=== PATIENT | male | born 1995 | race Caucasian/White ===

== ENCOUNTER 2023-11-27 08:50 | Emergency (ER) | payer OTHER ==
--- NOTE | 2023-11-27 09:17 | ED Physician Documentation ---
History of Present Illness - Stated complaint Stated Complaint: NECK/FACE SWOLLEN/DENTAL INFECTION - Chief complaint Chief Complaint: Heent - History obtained from History obtained from: Patient, Police - History of Present Illness Timing: How many weeks ago (1) Pain level max: 6 Pain level now: 6 - Additonal information Additional information: 28-year-old male presents to the emergency department with right lower jaw pain. He states that this started about a week ago. He is currently incarcerated and is here with police. Patient states that he was started on amoxicillin and Flagyl about 4 days ago. Feels like the swelling has continued to increase and felt like he had difficulty speaking last night and this morning. Feels like it is becoming more difficult to fully open his jaw. No fevers. No chills. Worse with movement, better with rest. Review of Systems Constitutional: denies: Fever, Chills Throat: reports: Sore throat Cardiac: denies: Palpitations Respiratory: denies: Dyspnea, Cough, Wheezing GI: denies: Nausea, Vomiting, Diarrhea Skin: denies: Rash Musculoskeletal: denies: Neck pain, Back pain Neurologic: denies: Headache PD PAST MEDICAL HISTORY - Past Medical History Past Medical History: No - Past Surgical History Past Surgical History: No - Present Medications Home Medications: Ambulatory Orders Medication Instructions Recorded Confirmed clindamycin HCL [Cleocin HCl] 300 mg PO Q6H #40 cap 11/27/23 - Allergies Allergies/Adverse Reactions: Allergies Allergy/AdvReac Type Severity Reaction Status Date / Time No Known Drug Allergies Allergy Verified 11/27/23 09:00 - Social History Does the pt smoke?: No Smoking Status: Never smoker Does the pt drink ETOH?: No PD ED PE NORMAL - Vitals Vital signs reviewed: Yes - General General: Alert and oriented X 3, No acute distress - HEENT HEENT: Other (Unable to fully visualize the posterior oropharynx, appears that there could be some mild asymmetric right-sided peritonsillar swelling. Patient has moderate trismus. There is swelling to the right inferior angle of the mandible. There is no swelling under the tongue. Normal phonation.) - Neck Neck: Supple, no meningeal sign - Cardiac Cardiac: RRR, Strong equal pulses - Respiratory Respiratory: No respiratory distress, Clear bilaterally - Abdomen Abdomen: Soft, Non tender, Non distended - Derm Derm: Warm and dry - Neuro Neuro: Alert and oriented X 3 Results - Vitals Vitals: Vital Signs - 24 hr 11/27/23 11/27/23 08:57 11:06 Temperature 36.6 C Heart Rate 91 81 Respiratory 16 16 Rate Blood Pressure 124/76 113/76 O2 Saturation 98 96 Oxygen O2 Source Room air - Labs Labs: Laboratory Tests 11/27/23 11/27/23 11/27/23 09:18 09:33 09:33 WBC 10.8 RBC 4.21 L Hgb 12.8 L Hct 38.6 L MCV 91.7 MCH 30.4 MCHC 33.2 RDW 12.8 Plt Count 227 MPV 9.5 Neut # (Auto) 6.8 H Lymph # (Auto) 2.6 [place] # (Auto) 1.2 H Eos # (Auto) 0.1 Baso # (Auto) 0.0 Absolute Nucleated RBC 0.00 Nucleated RBC % 0.0 Sodium 139 Potassium 3.8 Chloride 103 Carbon Dioxide 31 Anion Gap 5.0 L BUN 9 Creatinine 0.9 Estimated GFR (MDRD) 101 Glucose 100 Calcium 9.3 Group A Strep Rapid Negative PD Medical Decision Making - ED course Complexity details: reviewed results, re-evaluated patient, considered differential, d/w patient ED course: There is a possible abscess near the dental carry of right lower molar. There is no further deeper swelling or abscess on CT scan. Given IV Toradol, dexamethasone and clindamycin. Tolerating p.o. without difficulty here. Trismus improved after dexamethasone. Will change to oral clindamycin. Will have the patient follow-up with a dentist for further care. Patient will be discharged back to the nursing home in police custody. Patient counseled regarding signs and symptoms for which I believe and urgent re-evaluation would be necessary. Patient with good understanding of and agreement to plan and is comfortable going home at this time This document was made in part using voice recognition software. While efforts are made to proofread this document, sound alike and grammatical errors may occur. Departure - Departure Disposition: 01 Home, Self Care Clinical Impression: Pain due to dental caries Condition: Good Instructions: ED Tooth Pain Follow-Up: your,doctor tomorrow [Other] Prescriptions: clindamycin HCL [Cleocin HCl] 300 mg PO Q6H #40 cap Comments: Please follow-up with your dentist for further care. Your CT scan does not show any abnormalities deeper in your throat. You may have an early abscess near your right mandibular molar. This will need to be addressed by a dentist. We will change your antibiotic to clindamycin, you can stop the others. You were given an IV dose of clindamycin here as well as a dose of dexamethasone and Toradol. Please return if you worsen. EXAM: [id number] CT/NECKW (22573) PROCEDURE: Soft Tissue Neck W INDICATIONS: R sided neck/throat swelling, trismus CONTRAST: 100ml omni 300 TECHNIQUE: After the administration of intravenous contrast, 3.0 mm axial sections acquired from the sella to the aortic arch. Additional oblique axial 3.0 mm sections acquired through the pharynx. 3 mm thick coronal reformats were generated. For radiation dose reduction, the following was used: automated exposure control, adjustment of mA and/or kV according to patient size. COMPARISON: None. FINDINGS: Image quality: Diagnostic. Lymph nodes: There is asymmetrically enlarged right cervical chain lymph nodes compared to the right.. Vessels: Visualized vasculature appears patent. Neck spaces: The oropharynx, nasopharynx, and pharynx demonstrate no mucosal lesions. The vocal cords, false vocal cords, pyriform sinuses, epiglottis, vallecula, and tongue base all appear normal. Extramucosal spaces appear unremarkable. Glands: The parotid and submandibular glands appear normal. The thyroid is normal in size and there are no incidental findings. Miscellaneous: Multiple dental caries are visualized. Adjacent to right mandibular molar doroteo, there is trace fluid and foci of gas, for example coronal image 33, image 139 and axial series 2, image 35 which may reflect phlegmon/early abscess. Visualized brain and orbits appear normal. Lung apices appear clear. Bones: No suspicious bony lesions. Visualized sinuses and mastoids appear unremarkable. IMPRESSION: Multiple dental caries. Query phlegmon/early abscess adjacent to right mandibular molar carry. Asymmetrically enlarged right cervical lymph nodes, likely reactive. CLINICAL RECOMMENDATION STATEMENTS: In patients <35 years with an ITN detected on CT, MRI, or extrathyroidal ultrasound, the Committee recommends further evaluation with dedicated thyroid ultrasound if the nodule is "e1 cm and has no suspicious imaging features, and if the patient has normal life expectancy. In patients "e35 years with an ITN detected on CT, MRI, or extrathyroidal ultrasound, the Committee recommends further evaluation with dedicated thyroid ultrasound if the nodule is "e1.5 cm and has no suspicious imaging features, and if the patient has normal life expectancy. (ACR, 2014) Forms: PCP List Discharge Date/Time: 11/27/23 12:07
[2023-11-27 09:34] LABS: RAPID STREP SCREEN Negative (Negative)
[2023-11-27 09:40] LABS: BASOPHILS % (AUTO) 0.4 %; EOSINOPHILS # (AUTO) 0.1 10^3/uL (0.0-0.7); EOSINOPHILS % (AUTO) 0.9 %; HCT - HEMATOCRIT 38.6 % (42.0-52.0); HGB - HEMOGLOBIN 12.8 g/dL (14.0-18.0); LYMPHOCYTES # (AUTO) 2.6 10^3/uL (1.5-3.5); LYMPHOCYTES % (AUTO) 23.9 %; MEAN CORPUSCULAR HEMOGLOBIN 30.4 pg (27.0-31.0); MEAN CORPUSCULAR HGB CONC 33.2 g/dL (32.0-36.0); MEAN CORPUSCULAR VOLUME 91.7 fL (80.0-94.0); MEAN PLATELET VOLUME 9.5 fL (7.4-11.4); MONOCYTES # (AUTO) 1.2 10^3/uL (0.0-1.0); MONOCYTES % (AUTO) 11.2 %; NEUTROPHILS # (AUTO) 6.8 10^3/uL (1.5-6.6); NEUTROPHILS % (AUTO) 63.4 %; PLT - PLATELET COUNT 227 10^3/uL (130-450); RED BLOOD COUNT 4.21 10^6/uL (4.70-6.10); RED CELL DISTRIBUTION WIDTH 12.8 % (12.0-15.0); WHITE BLOOD COUNT 10.8 x10^3/uL (4.8-10.8)
[2023-11-27] MEDS ORDERED: iohexoL-300 100 ML VIAL ONE (09:50)
[2023-11-27 09:54] LABS: CALCIUM 9.3 mg/dL (8.5-10.3); CREATININE 0.9 mg/dL (0.6-1.3); POTASSIUM 3.8 mmol/L (3.5-4.5)
[2023-11-27 11:11] VITALS: BP 113/76; O2SAT 96
[2023-11-27] MEDS: KETOROLAC 15 MG/ML VIAL IVP STA (11:11)
[2023-11-27] MEDS: CLINDAMYCIN 150 MG CAPSULE PO STA (11:11)
--- NOTE | 2023-11-27 11:12 | CT Report ---
PROCEDURE: Soft Tissue Neck W INDICATIONS: R sided neck/throat swelling, trismus CONTRAST: 100ml omni 300 TECHNIQUE: After the administration of intravenous contrast, 3.0 mm axial sections acquired from the sella to th e aortic arch. Additional oblique axial 3.0 mm sections acquired through the pharynx. 3 mm thick co анна reformats were generated. For radiation dose reduction, the following was used: automated exp osure control, adjustment of mA and/or kV according to patient size. COMPARISON: None. FINDINGS: Image quality: Diagnostic. Lymph nodes: There is asymmetrically enlarged right cervical chain lymph nodes compared to the right. . Vessels: Visualized vasculature appears patent. Neck spaces: The oropharynx, nasopharynx, and pharynx demonstrate no mucosal lesions. The vocal cor ds, false vocal cords, pyriform sinuses, epiglottis, vallecula, and tongue base all appear normal. E xtramucosal spaces appear unremarkable. Glands: The parotid and submandibular glands appear normal. The thyroid is normal in size and there are no incidental findings. Miscellaneous: Multiple dental caries are visualized. Adjacent to right mandibular molar doroteo, ther e is trace fluid and foci of gas, for example coronal image 33, image 139 and axial series 2, image 3 5 which may reflect phlegmon/early abscess. Visualized brain and orbits appear normal. Lung apices appear clear. Bones: No suspicious bony lesions. Visualized sinuses and mastoids appear unremarkable. IMPRESSION: Multiple dental caries. Query phlegmon/early abscess adjacent to right mandibular molar carry. Asymmetrically enlarged right cervical lymph nodes, likely reactive. CLINICAL RECOMMENDATION STATEMENTS: In patients <35 years with an ITN detected on CT, MRI, or extrathyroidal ultrasound, the Committee re commends further evaluation with dedicated thyroid ultrasound if the nodule is "e1 cm and has no susp icious imaging features, and if the patient has normal life expectancy. In patients "e35 years with an ITN detected on CT, MRI, or extrathyroidal ultrasound, the Committee r ecommends further evaluation with dedicated thyroid ultrasound if the nodule is "e1.5 cm and has no s uspicious imaging features, and if the patient has normal life expectancy. (ACR, 2014) Reviewed by: Makayla Olmedo MD on 11/27/2023 10:10 AM TYLER Approved by: Makayla Olmedo MD on 11/27/2023 10:10 AM BOLIVAR Station ID: [id number]
[2023-11-27] MEDS: DEXAMETHASONE 10 MG/ML VIAL IVP STA (11:18)
[2023-11-27] MEDS: SODIUM CHLORIDE 0.9% 1,000 ML IV STA (11:20)
[2023-11-27] MEDS: iohexoL-300 100 ML VIAL IVP ONE (15:49)
== END 2023-11-27 12:07 | disposition home or self-care (01) ==
LOC: ED 08:50
DX: K02.9 Dental caries, unspecified (principal)
CPT/HCPCS: 36415; 70491; 80048; 85025; 87070; 87430; 96374; 96375; 99283; 99284; A9270; Q9967